=== PATIENT | male | born 1970 | race African-American/Black ===

== ENCOUNTER 2018-05-27 09:23 | Emergency (ER) | payer SELFPAY ==
[2018-05-27 10:02] LABS: ABSOLUTE EOSINOPHILS # (AUTO) 0.1 10^3/uL (0.0-0.6); ABSOLUTE LYMPHOCYTES (AUTO) 2.4 10^3/uL (0.5-4.7); ABSOLUTE MONOCYTES (AUTO) 0.6 10^3/uL (0.1-1.4); ABSOLUTE NEUT (AUTO) 2.5 10^3/uL (1.7-8.2); BASOPHILS % (AUTO) 0.7 % (0-2); EOSINOPHILS % (AUTO) 2.1 % (0-6); HEMATOCRIT 43.1 % (37.9-51.0); HEMOGLOBIN 14.8 g/dL (13.5-17.0); LYMPHOCYTES % (AUTO) 42.1 % (13-45); MEAN CORPUSCULAR HEMOGLOBIN 32.8 pg (27.0-33.4); MEAN CORPUSCULAR HGB CONC 34.4 g/dL (32.0-36.0); MEAN CORPUSCULAR VOLUME 95 fl (80-97); MONOCYTES % (AUTO) 10.6 % (3-13); PLATELET COUNT 228 10^3/uL (150-450); RED BLOOD COUNT 4.52 10^6/uL (4.35-5.55); RED CELL DISTRIBUTION WIDTH 13.1 % (11.5-14.0); SEGMENTED NEUTROPHILS % (AUTO) 44.5 % (42-78); TOTAL CELLS COUNTED % (AUTO) 100 %; WHITE BLOOD COUNT 5.7 10^3/uL (4.0-10.5)
[2018-05-27 10:14] LABS: ALANINE AMINOTRANSFERASE 30 U/L (21-72); ALBUMIN 3.9 g/dL (3.5-5.0); ALKALINE PHOSPHATASE 68 U/L (38-126); ANION GAP 6 (5-19); ASPARTATE AMINO TRANSFERASE 42 U/L (17-59); BILIRUBIN,DIRECT 0.3 mg/dL (0.0-0.4); BILIRUBIN,TOTAL 0.5 mg/dL (0.2-1.3); BLOOD UREA NITROGEN 15 mg/dL (7-20); CARBON DIOXIDE 31 mmol/L (22-30); CHLORIDE 104 mmol/L (98-107); GLUCOSE 154 mg/dL (75-110); POTASSIUM 3.6 mmol/L (3.6-5.0); SODIUM 141.4 mmol/L (137-145); TOTAL PROTEIN 6.9 g/dL (6.3-8.2)
[2018-05-27] MEDS ORDERED: DIPH/PERTUSS(ACELL)/TETANUS VAC/PF 0.5 ML SYR (>=10YO) IM ONE (11:38)
[2018-05-27 11:52] VITALS: BP 115/67
--- NOTE | 2018-05-27 12:13 | ER Document Report ---
ED General - General Chief Complaint: Back Pain Stated Complaint: BREATHING PROBLEMS Time Seen by Provider: 05/27/18 09:31 - HPI Notes: Patient presents to the emergency department for evaluation after a syncopal episode. He was sitting on a couch, watching a television show. He states that the television she was about brain surgery. His mother has had a craniectomy from a brain tumor, from this. He admits he felt dizzy, hot, upset. He states he stood up to leave the room. It was after that that he passed out. He was lowered to the ground. He did not sure his left elbow. He denies hitting his head. He has no other pain at this time. He denies use of illicit drugs, takes no prescription drugs at this time. States he stays well-hydrated. He works installing floors. - Related Data Allergies/Adverse Reactions: No Known Allergies Allergy (Verified 05/27/18 09:27) Past Medical History - General Information source: Patient - Social History Smoking Status: Unknown if Ever Smoked Frequency of alcohol use: Rare Drug Abuse: None Family History: Malignancy - Mother with brain cancer. No siblings. Patient has suicidal ideation: No Patient has homicidal ideation: No Renal/ Medical History: Denies: Hx Peritoneal Dialysis Review of Systems - Review of Systems Constitutional: No symptoms reported EENT: No symptoms reported Cardiovascular: See HPI Respiratory: No symptoms reported Gastrointestinal: No symptoms reported Genitourinary: No symptoms reported Musculoskeletal: No symptoms reported Skin: No symptoms reported Neurological/Psychological: No symptoms reported Physical Exam - Vital signs Vitals: Resp 10 L 05/27/18 09:28 Notes: Vital signs stable and as charted - Notes Notes: Vital signs reviewed, please refer to chart. Patient is normocephalic, atraumatic. Pupils equal round, reactive to light. Neck is supple without meningismus. Heart is regular rate and rhythm. Lungs are clear to auscultation bilaterally. Abdomen is soft, nontender, normoactive bowel sounds throughout. Extremities without cyanosis, clubbing, edema. Peripheral pulses are equal. Skin is warm and dry. Superficial 1 cm laceration to the right elbow. No deep structure involvement. No bony tenderness about the elbow. Patient is awake, alert, oriented x3. Cranial nerves II through XII are grossly intact without focal neurological deficits. Strength is plus 5 out of 5 bilateral upper and lower extremities. Sensation is intact. Intact [id number], rapid alternating movements, heel to morillo. Course - Re-evaluation Re-evalutation: 05/27/18 12:13 patient presents to the emergency department for evaluation. He came in via EMS. Evidently had some low blood pressures. Given his story and otherwise go od state of health, I do strongly suspect that the patient had vasovagal syncope. Patient was given IV fluids. He has no symptoms at this time. His wound was cleansed. He was told to rest, stay well-hydrated. He is to follow- up with primary care, return to the emergency department with worsening or new concerning symptoms of any sort. 05/27/18 12:15 - Vital Signs Vital signs: Temp Pulse Resp BP Pulse Ox 97.9 F 54 L 20 115/67 97 05/27/18 11:47 05/27/18 09:43 05/27/18 11:47 05/27/18 11:47 05/27/18 11:47 - Laboratory Result Diagrams: 05/27/18 09:37 05/27/18 09:37 Laboratory results interpreted by me: 05/27/18 09:37 Carbon Dioxide 31 H Creatinine 1.36 H Est GFR (Non-Af Amer) 56 L Glucose 154 H - Diagnostic Test Radiology reviewed: Reports reviewed - No acute cardiopulmonary disease - EKG Interpretation by Me Additional EKG results interpreted by me: 05/27/18 12:14 Sinus bradycardia with a rate of 53 bpm. Normal axis, LVH. Incomplete right bundle branch block. Early repolarization. Discharge - Discharge Clinical Impression: Vasovagal syncope, Superficial laceration to left elbow Condition: Stable Disposition: HOME, SELF-CARE Instructions: Syncopal Episode ([facility]) Additional Instructions: Rest, stay well-hydrated. Keep wound on your elbow clean with soap and water. Follow-up with your doctor next week. Return to the emergency department with worsening or new concerning symptoms of any sort.
--- NOTE | 2018-05-27 19:17 | EKG REPORT ---
SEVERITY:- ABNORMAL ECG - SINUS RHYTHM LEFT VENTRICULAR HYPERTROPHY BORDERLINE INFERIOR Q WAVES ST ELEV, PROBABLE NORMAL EARLY REPOL PATTERN : Confirmed by: Quiana Crespo MD 27-May-2018 19:16:56
== END 2018-05-27 12:29 | disposition home or self-care (01) ==
LOC: ER 09:23
DX: S01.112A Laceration without foreign body of left eyelid and periocular area, initial encounter (principal); M54.9 Dorsalgia, unspecified; R55 Syncope and collapse; X58.XXXA Exposure to other specified factors, initial encounter; Y92.009 Unspecified place in unspecified non-institutional (private) residence as the place of occurrence of the external cause; Z23 Encounter for immunization
CPT/HCPCS: 36415; 80053; 85025; 90471; 90715; 93005; 93010; 99284